=== PATIENT | female | born 1945 | race Caucasian/White ===

== ENCOUNTER → 2021-08-26 11:04 | Outpatient (CLI) | payer MEDICARE, OTHER, SELFPAY | DX: D50.0 Iron deficiency anemia secondary to blood loss (chronic) (principal); C50.912 Malignant neoplasm of unspecified site of left female breast; C79.51 Secondary malignant neoplasm of bone | CPT/HCPCS: 36591; 85025; 86850; 86900; 86901; 86920; 86922; A4216 ==

== ENCOUNTER → 2021-08-27 10:49 | Outpatient (CLI) | payer MEDICARE, OTHER, SELFPAY ==
[2021-08-26 12:02] LABS: Hematocrit 24.3 % (37-47); Hemoglobin 7.4 g/dL (12.0-15.0); Mean Corp Hgb Conc 30.5 g/dL (32-36); Mean Corpuscular Volume 95.3 fL (81-99); Mean Platelet Vol. 10.3 fl (6.2-12.0); POSITIVE COUNT YES; POSITIVE MORPHOLOGY YES; Platelet Count 85 K/mm3 (150-450); RBC Distribution Width CV 19.6 % (11.6-14.6); Red Blood Count 2.55 M/mm3 (4.2-5.4)
[2021-08-26 12:05] LABS: Differential Indicated MANUAL DIFF
[2021-08-26 12:35] LABS: Corrected WBC 2.8 K/mm3 (4.4-11.0); Eosinophil 4 % (0-5); Lymphocyte 31 % (19-41); Metamyelocyte 1 % (0-1); Monocyte 8 % (0-10); Myelocyte 3 % (0-0); Neutrophil-Band 6 % (0-5); Neutrophil-Segmented 47 % (47-70); Nucleated Red Bld Cells,Manual 27 % (0-5); Polychromasia 1+; Total Cells Counted 100 (MANUAL DIFF)
[2021-08-26 12:36] LABS: Anisocytosis 2+; Macrocytosis 1+; Microcytosis 1+; Platelet Estimate SLT INC (ADEQ)
[2021-08-26 12:40] LABS: Absolute Lymphocyte Count 0.87 X10^3/uL (0.83-4.51); Absolute Neutrophil Count 1.5 X10^3/uL (2.0-7.7)
[2021-08-26 19:56] LABS: Xtra Tube EP Lab EXTRA TUBE
[2021-08-27 11:08] VITALS: BP 151/63; PULSE 85; RESP 16; TEMP 36.2; O2SAT 96; BMI 32.2
[2021-08-27] MEDS: DiphenhydrAMINE 25 MG Capsule PO (11:16)
[2021-08-27] MEDS: Acetaminophen 325 MG Tablet 650 MG PO (11:17)
[2021-08-27 11:50] VITALS: BP 129/60; PULSE 81; RESP 16; TEMP 36.1; O2SAT 98
[2021-08-27 12:46] VITALS: BP 122/58; PULSE 79; RESP 16; TEMP 36.2; O2SAT 98
[2021-08-27 13:24] LABS: Pathologist Review Reviewed
[2021-08-27 13:41] VITALS: BP 126/54; PULSE 77; RESP 16; TEMP 36.2; O2SAT 98
[2021-08-27] MEDS: 0.9% NaCl Peripheral Flush Adult/Peds IV (13:46)
== END ==
DX: C50.919 Malignant neoplasm of unspecified site of unspecified female breast (principal); C79.51 Secondary malignant neoplasm of bone
CPT/HCPCS: 36430; 85025; 86850; 86900; 86901; 86920; 86922; J7040; P9016; A4216

== ENCOUNTER → 2021-09-23 13:08 | Outpatient (CLI) | payer MEDICARE, OTHER, SELFPAY ==
--- NOTE | 2021-09-23 13:45 | MRI_ITS ---
STUDY: MRI ABDOMEN WITH AND WITHOUT CONTRAST REASON FOR EXAM: Female, 75 years old. Breast CA with mets to bone,liver TECHNIQUE: Standardized fat and water weighted pulse sequences were obtained in all 3 orthogonal planes post contrast administration. IV 15ml Dotarem was administered for the contrast portion of the examination. COMPARISON: 08 August 2021 FINDINGS: Appearance is similar to prior. There are innumerable hepatic metastases replacing more than 50% of the parenchymal volume and estimated at greater than 100. Due to the extreme number of lesions comparison between current and prior is not reliable with respect to disease progression. Neither the number nor the exact size of the lesions can be reliably compared. Visually estimated volume of disease is stable. There are questionable small subcentimeter splenic enhancing foci, possibly small number of metastasis. Adrenals, kidneys and pedicles are normal. There is no upper abdominal lymphadenopathy. There is cholecystectomy extra hepatic biliary dilation. There is no biliary obstruction. Skeleton is heterogeneous due to diffuse metastatic disease. MRI/MRI Abd WITH and W/O Contrast IMPRESSION: 1. Stable since prior. 2. High-volume diffuse hepatic metastatic disease, greater than 50% replacement of parenchyma. 3. Diffuse osseous metastases. Electronically Signed: Patty Salcido MD at 12:31 EST Tel , Service support ,
[2021-09-23] MEDS: 0.9% Saline Lock 10 ML Syringe IV (14:22)
[2021-09-24 11:41] LABS: CREATININE FINGERSTICK 0.61 mg/dL (0.55-1.02); EGFR FINGERSTICK > 60 mL/min (>60)
== END ==
DX: C50.912 Malignant neoplasm of unspecified site of left female breast (principal); C79.51 Secondary malignant neoplasm of bone; C79.89 Secondary malignant neoplasm of other specified sites
CPT/HCPCS: 74183; A9575; A4216

== ENCOUNTER → 2021-10-13 10:07 | Outpatient (CLI) | payer MEDICARE, OTHER, SELFPAY ==
[2021-10-13 10:57] LABS: Hematocrit 28.6 % (37-47); Hemoglobin 8.8 g/dL (12.0-15.0); Mean Corp Hgb Conc 30.8 g/dL (32-36); Mean Corpuscular Volume 94.4 fL (81-99); Mean Platelet Vol. 10.2 fl (6.2-12.0); POSITIVE COUNT YES; POSITIVE MORPHOLOGY YES; Platelet Count 103 K/mm3 (150-450); RBC Distribution Width CV 20.8 % (11.6-14.6); RBC Distribution Width SD 70.7 fl (35.1-43.9); Red Blood Count 3.03 M/mm3 (4.2-5.4)
[2021-10-13 11:00] LABS: Differential Indicated MANUAL DIFF
[2021-10-13 11:22] LABS: Corrected WBC 3.3 K/mm3 (4.4-11.0); Eosinophil 1 % (0-5); Lymphocyte 39 % (19-41); Metamyelocyte 1 % (0-1); Monocyte 1 % (0-10); Neutrophil-Band 7 % (0-5); Neutrophil-Segmented 51 % (47-70); Nucleated Red Bld Cells,Manual 10 % (0-5); Total Cells Counted 100 (MANUAL DIFF)
[2021-10-13 11:23] LABS: Hypochromasia 1+; Platelet Estimate ADEQUATE (ADEQ); Polychromasia RARE
[2021-10-13 13:57] LABS: Absolute Lymphocyte Count 1.28 X10^3/uL (0.83-4.51); Absolute Neutrophil Count 1.9 X10^3/uL (2.0-7.7); Lymphocyte # 1.28 X10^3/ul (0.83-4.51); Neutrophil # 1.91 X10^3/uL (2.7-7.7)
[2021-10-13 18:49] LABS: Xtra Tube EP Lab EXTRA TUBE
[2021-10-14 09:25] LABS: Pathologist Review Reviewed
== END ==
DX: C50.912 Malignant neoplasm of unspecified site of left female breast (principal); C79.51 Secondary malignant neoplasm of bone
CPT/HCPCS: 36591; 85025; A4216

== ENCOUNTER → 2021-11-05 10:11 | Outpatient (CLI) | payer MEDICARE, OTHER, SELFPAY ==
[2021-11-05 10:37] LABS: Hematocrit 26.6 % (37-47); Hemoglobin 8.1 g/dL (12.0-15.0); Mean Corp Hgb Conc 30.5 g/dL (32-36); Mean Corpuscular Volume 95.3 fL (81-99); Mean Platelet Vol. 12.2 fl (6.2-12.0); POSITIVE COUNT YES; POSITIVE DIFFERENTIAL YES; POSITIVE MORPHOLOGY YES; Platelet Count 98 K/mm3 (150-450); RBC Distribution Width CV 20.7 % (11.6-14.6); RBC Distribution Width SD 70.2 fl (35.1-43.9); Red Blood Count 2.79 M/mm3 (4.2-5.4)
[2021-11-05 10:40] LABS: Differential Indicated MANUAL DIFF
[2021-11-05 11:20] LABS: Anisocytosis 1+; Basophil 1 % (0-1); Corrected WBC 10.5 K/mm3 (4.4-11.0); Eosinophil 4 % (0-5); Lymphocyte 8 % (19-41); Metamyelocyte 4 % (0-1); Monocyte 12 % (0-10); Myelocyte 1 % (0-0); Neutrophil-Segmented 64 % (47-70); Nucleated Red Bld Cells,Manual 10 % (0-5); Platelet Estimate MOD DEC (ADEQ); Promyelocyte 6 % (0-0); Red Cell Morphology N CHROM NORMAL (NORM C&C); Total Cells Counted 100 (MANUAL DIFF)
[2021-11-05 11:22] LABS: Absolute Neutrophil Count 6.7 X10^3/uL (2.0-7.7)
[2021-11-05 11:23] LABS: Absolute Lymphocyte Count 0.84 X10^3/uL (0.83-4.51); Lymphocyte # 0.84 X10^3/ul (0.83-4.51)
[2021-11-07 09:59] LABS: Pathologist Review Reviewed
== END ==
DX: C80.1 Malignant (primary) neoplasm, unspecified (principal); C79.89 Secondary malignant neoplasm of other specified sites
CPT/HCPCS: 36591; 85025; A4216

== ENCOUNTER → 2022-03-10 | Outpatient (CLI) | payer MEDICARE, OTHER, SELFPAY ==
[2022-03-10 13:13] LABS: Absolute Lymphocyte Count 0.89 X10^3/uL (0.83-4.51); Absolute Neutrophil Count 1.4 X10^3/uL (2.0-7.7); Basophil# 0.03 X10^3/uL; Basophil% 1.1 % (0-1); Hemoglobin 8.8 g/dL (12.0-15.0); Lymphocyte # 0.89 X10^3/ul (0.83-4.51); Lymphocyte % 32.1 % (19-41); Mean Corp Hgb Conc 30.3 g/dL (32-36); Mean Corpuscular Hgb 31.3 pg (27.0-32.0); Mean Corpuscular Volume 103.2 fL (81-99); Monocyte# 0.45 X10^3/uL; Monocyte% 16.2 % (0-10); Neutrophil # 1.38 X10^3/uL (2.7-7.7); Neutrophil % 49.9 % (47-70); POSITIVE COUNT YES; POSITIVE MORPHOLOGY YES; Platelet Count 52 K/mm3 (150-450); RBC Distribution Width CV 20.3 % (11.6-14.6); Red Blood Count 2.81 M/mm3 (4.2-5.4); White Blood Count 2.8 K/mm3 (4.4-11.0)
[2022-03-10 13:48] LABS: Differential Indicated SCAN CRITERIA MET
[2022-03-10 13:52] LABS: Anisocytosis 1+; Macrocytosis 1+; Platelet Estimate SLT DEC (ADEQ)
== END | disposition home or self-care (01) ==
DX: C79.89 Secondary malignant neoplasm of other specified sites (principal); C80.1 Malignant (primary) neoplasm, unspecified
CPT/HCPCS: 36415; 36591; 85025; A4216

== ENCOUNTER → 2022-03-17 10:24 | Outpatient (CLI) | payer MEDICARE, OTHER, SELFPAY ==
[2022-03-17 10:59] LABS: Absolute Lymphocyte Count 1.05 X10^3/uL (0.83-4.51); Basophil# 0.02 X10^3/uL; Basophil% 0.8 % (0-1); Hematocrit 29.4 % (37-47); Hemoglobin 8.9 g/dL (12.0-15.0); Lymphocyte # 1.05 X10^3/ul (0.83-4.51); Lymphocyte % 43.8 % (19-41); Mean Corp Hgb Conc 30.3 g/dL (32-36); Mean Corpuscular Hgb 31.8 pg (27.0-32.0); Mean Platelet Vol. 10.8 fl (6.2-12.0); Monocyte# 0.34 X10^3/uL; Monocyte% 14.2 % (0-10); NRBC Flagged by Analyzer 1.3 % (0-5); Neutrophil # 0.98 X10^3/uL (2.7-7.7); Neutrophil % 40.8 % (47-70); POSITIVE COUNT YES; POSITIVE DIFFERENTIAL YES; POSITIVE MORPHOLOGY YES; Platelet Count 43 K/mm3 (150-450); RBC Distribution Width CV 19.1 % (11.6-14.6); RBC Distribution Width SD 74.2 fl (35.1-43.9); White Blood Count 2.4 K/mm3 (4.4-11.0)
[2022-03-17 11:01] LABS: Differential Indicated SCAN CRITERIA MET
[2022-03-17 11:36] LABS: Differential Comment SCANNED
[2022-03-17 11:39] LABS: Anisocytosis 2+; Polychromasia RARE
[2022-03-19 09:32] LABS: Pathologist Review Reviewed
== END ==
DX: D50.8 Other iron deficiency anemias (principal)
CPT/HCPCS: 36591; 85025; A4216

== ENCOUNTER → 2022-03-24 | Outpatient (CLI) | payer MEDICARE, OTHER, SELFPAY ==
[2022-03-24 12:41] LABS: Absolute Lymphocyte Count 1.04 X10^3/uL (0.83-4.51); Absolute Neutrophil Count 1.7 X10^3/uL (2.0-7.7); Basophil# 0.03 X10^3/uL; Basophil% 0.9 % (0-1); Eosinophil# 0.04 X10^3/uL; Eosinophils% 1.3 % (0-5); Hematocrit 29.4 % (37-47); Lymphocyte # 1.04 X10^3/ul (0.83-4.51); Lymphocyte % 32.7 % (19-41); Mean Corp Hgb Conc 30.6 g/dL (32-36); Mean Corpuscular Volume 104.6 fL (81-99); Monocyte# 0.41 X10^3/uL; Monocyte% 12.9 % (0-10); NRBC Flagged by Analyzer 0.6 % (0-5); Neutrophil # 1.65 X10^3/uL (2.7-7.7); Neutrophil % 51.9 % (47-70); POSITIVE COUNT YES; POSITIVE MORPHOLOGY YES; Platelet Count 50 K/mm3 (150-450); RBC Distribution Width CV 18.8 % (11.6-14.6); RBC Distribution Width SD 72.9 fl (35.1-43.9); Red Blood Count 2.81 M/mm3 (4.2-5.4); White Blood Count 3.2 K/mm3 (4.4-11.0)
[2022-03-24 13:22] LABS: Differential Indicated SCAN CRITERIA MET
[2022-03-24 13:23] LABS: Differential Comment SCANNED
[2022-03-25 13:55] LABS: Pathologist Review Reviewed
== END | disposition home or self-care (01) ==
LOC: MEDOUTP 11:54
DX: D50.8 Other iron deficiency anemias
CPT/HCPCS: 36591; 85025; A4216

== ENCOUNTER → 2022-03-31 | Outpatient (CLI) | payer MEDICARE, OTHER, SELFPAY ==
[2022-03-31 13:07] LABS: Absolute Lymphocyte Count 1.33 X10^3/uL (0.83-4.51); Absolute Neutrophil Count 1.8 X10^3/uL (2.0-7.7); Basophil# 0.03 X10^3/uL; Basophil% 0.8 % (0-1); Eosinophil# 0.02 X10^3/uL; Eosinophils% 0.6 % (0-5); Hemoglobin 8.8 g/dL (12.0-15.0); Lymphocyte # 1.33 X10^3/ul (0.83-4.51); Lymphocyte % 36.8 % (19-41); Mean Corp Hgb Conc 30.3 g/dL (32-36); Mean Corpuscular Hgb 32.5 pg (27.0-32.0); Mean Platelet Vol. 11.1 fl (6.2-12.0); Monocyte% 11.1 % (0-10); NRBC Flagged by Analyzer 0.6 % (0-5); Neutrophil # 1.82 X10^3/uL (2.7-7.7); Neutrophil % 50.4 % (47-70); POSITIVE COUNT YES; POSITIVE MORPHOLOGY YES; Platelet Count 61 K/mm3 (150-450); RBC Distribution Width CV 18.6 % (11.6-14.6); RBC Distribution Width SD 73.3 fl (35.1-43.9); Red Blood Count 2.71 M/mm3 (4.2-5.4); White Blood Count 3.6 K/mm3 (4.4-11.0)
[2022-03-31 13:11] LABS: Differential Indicated SCAN CRITERIA MET
[2022-03-31 14:11] LABS: Anisocytosis 1+; Macrocytosis 1+; Platelet Estimate SLT DEC (ADEQ)
== END | disposition home or self-care (01) ==
LOC: MEDOUTP 12:29
DX: D50.8 Other iron deficiency anemias (principal)
CPT/HCPCS: 36591; 85025; A4216

== ENCOUNTER → 2022-04-09 | Outpatient (CLI) | payer MEDICARE, OTHER, SELFPAY ==
[2022-04-09 12:49] LABS: Absolute Lymphocyte Count 1.57 X10^3/uL (0.83-4.51); Absolute Neutrophil Count 2.5 X10^3/uL (2.0-7.7); Basophil# 0.02 X10^3/uL; Basophil% 0.4 % (0-1); Hematocrit 30.7 % (37-47); Hemoglobin 9.2 g/dL (12.0-15.0); Lymphocyte # 1.57 X10^3/ul (0.83-4.51); Lymphocyte % 34.6 % (19-41); Mean Corpuscular Hgb 32.1 pg (27.0-32.0); Mean Platelet Vol. 11.6 fl (6.2-12.0); Monocyte% 8.8 % (0-10); NRBC Flagged by Analyzer 3.1 % (0-5); Neutrophil # 2.53 X10^3/uL (2.7-7.7); Neutrophil % 55.8 % (47-70); POSITIVE MORPHOLOGY YES; Platelet Count 122 K/mm3 (150-450); RBC Distribution Width CV 18.2 % (11.6-14.6); RBC Distribution Width SD 70.6 fl (35.1-43.9); Red Blood Count 2.87 M/mm3 (4.2-5.4); White Blood Count 4.5 K/mm3 (4.4-11.0)
[2022-04-09 12:50] LABS: Differential Indicated SCAN CRITERIA MET
[2022-04-09 13:10] LABS: Anisocytosis 1+
== END | disposition home or self-care (01) ==
LOC: MEDOUTP 12:22
DX: D50.8 Other iron deficiency anemias (principal)
CPT/HCPCS: 36591; 85025

== ENCOUNTER → 2022-04-28 | Outpatient (CLI) | payer MEDICARE, OTHER, SELFPAY ==
--- NOTE | 2022-04-28 10:15 | NM_ITS ---
EXAM: NM BONE SCAN CLINICAL INDICATION: SPINE METASTASIS TECHNIQUE: Anterior and posterior 3 hour delayed images of the whole body were obtained following the intravenous administration of Tc99m MDP. This report was created using [employer] report [employer] technology. COMPARISON: None. FINDINGS: SKULL/FACIAL BONES: Focal increased uptake within the left orbit. SPINE: Decreased uptake noted within the upper half of the thoracic spine which may represent postirradiation change. Underlying metastatic disease difficult to exclude. RIBS: Unremarkable. No suspicious osseous lesions to suggest metastatic disease. LONG BONES: Mild focus of increased uptake in the proximal right humerus. Increased uptake within the midportion of the left femur. PELVIS: Unremarkable. No suspicious osseous lesions to suggest metastatic disease. JOINTS: Increased activity noted within the joints of the upper and lower extremities likely related to arthritic change. SOFT TISSUES: Unremarkable. RENAL/BLADDER: Unremarkable. Prompt symmetric renal uptake. Urinary bladder partially filled with radiopharmaceutical. OTHER FINDINGS: NM/Bone Scan Whole Body IMPRESSION: 1. Decreased uptake within the upper thoracic spine which may represent post radiation change. 2. Mild uptake within the right humerus, left femur and left orbit which may represent metastatic disease. 3. Symmetric uptake within the joints of the upper and lower extremities consistent with arthritic change. Electronically Signed: Real Ovalle MD at 14:45 EDT ,
[2022-04-28] MEDS: 0.9% Saline Lock 10 ML Syringe IV (10:41)
== END | disposition home or self-care (01) ==
LOC: NM 10:06
DX: C79.51 Secondary malignant neoplasm of bone (principal); C50.912 Malignant neoplasm of unspecified site of left female breast
CPT/HCPCS: 78306; A9503; A4216

== ENCOUNTER → 2022-05-05 | Outpatient (CLI) | payer MEDICARE, OTHER, SELFPAY ==
[2022-05-05 12:51] LABS: Absolute Lymphocyte Count 2.15 X10^3/uL (0.83-4.51); Absolute Neutrophil Count 8.4 X10^3/uL (2.0-7.7); Basophil# 0.13 X10^3/uL; Basophil% 1.1 % (0-1); Eosinophil# 0.01 X10^3/uL; Eosinophils% 0.1 % (0-5); Hematocrit 30.1 % (37-47); Hemoglobin 9.1 g/dL (12.0-15.0); Lymphocyte # 2.15 X10^3/ul (0.83-4.51); Lymphocyte % 17.8 % (19-41); Mean Corp Hgb Conc 30.2 g/dL (32-36); Mean Corpuscular Hgb 32.5 pg (27.0-32.0); Mean Corpuscular Volume 107.5 fL (81-99); Mean Platelet Vol. 12.1 fl (6.2-12.0); Monocyte# 1.18 X10^3/uL; Monocyte% 9.8 % (0-10); Neutrophil # 8.38 X10^3/uL (2.7-7.7); Neutrophil % 69.5 % (47-70); POSITIVE MORPHOLOGY YES; Platelet Count 183 K/mm3 (150-450); RBC Distribution Width CV 20.5 % (11.6-14.6); RBC Distribution Width SD 81.5 fl (35.1-43.9); White Blood Count 12.1 K/mm3 (4.4-11.0)
[2022-05-05 13:23] LABS: Differential Indicated SCAN CRITERIA MET
[2022-05-05 13:25] LABS: Anisocytosis 2+; Differential Comment SCANNED; Macrocytosis 1+; Microcytosis 1+
[2022-05-05 20:48] LABS: Xtra Tube EP Lab EXTRA TUBE
== END | disposition home or self-care (01) ==
LOC: MEDOUTP 12:27
DX: D50.8 Other iron deficiency anemias (principal)
CPT/HCPCS: 36591; 85025; A4216

== ENCOUNTER → 2022-05-19 | Outpatient (CLI) | payer MEDICARE, OTHER, SELFPAY ==
[2022-05-19 12:57] LABS: Absolute Lymphocyte Count 1.85 X10^3/uL (0.83-4.51); Absolute Neutrophil Count 15.2 X10^3/uL (2.0-7.7); Basophil# 0.21 X10^3/uL; Basophil% 1.1 % (0-1); Eosinophil# 0.09 X10^3/uL; Eosinophils% 0.5 % (0-5); Hematocrit 30.2 % (37-47); Hemoglobin 9.4 g/dL (12.0-15.0); Lymphocyte # 1.85 X10^3/ul (0.83-4.51); Lymphocyte % 9.7 % (19-41); Mean Corp Hgb Conc 31.1 g/dL (32-36); Mean Corpuscular Hgb 32.6 pg (27.0-32.0); Mean Corpuscular Volume 104.9 fL (81-99); Mean Platelet Vol. 11.9 fl (6.2-12.0); Monocyte# 0.99 X10^3/uL; Monocyte% 5.2 % (0-10); NRBC Flagged by Analyzer 0.5 % (0-5); Neutrophil # 15.18 X10^3/uL (2.7-7.7); POSITIVE MORPHOLOGY YES; Platelet Count 209 K/mm3 (150-450); RBC Distribution Width CV 20.6 % (11.6-14.6); RBC Distribution Width SD 79.9 fl (35.1-43.9); Red Blood Count 2.88 M/mm3 (4.2-5.4)
[2022-05-19 13:07] LABS: Differential Indicated SCAN CRITERIA MET
[2022-05-19 13:39] LABS: Anisocytosis RARE; Differential Comment SCANNED
[2022-05-19 20:52] LABS: Xtra Tube EP Lab EXTRA TUBE
== END | disposition home or self-care (01) ==
LOC: MEDOUTP 12:02
DX: D50.8 Other iron deficiency anemias (principal)
CPT/HCPCS: 36591; 85025; A4216